=== PATIENT | male | born 1985 | race Two or more races ===

== ENCOUNTER 2020-08-05 19:10 | Emergency (ER) | payer OTHER ==
[~2020-08-05] VITALS: Ht 170.2 cm; Wt 110.2 kg
--- NOTE | 2020-08-05 19:42 | NUR ---
PT STATES HAVING SOB, FEVER, N/V/D X 5 DAYS. PT ALTERNATING TYLENOL AND IBUPROFEN, LAST DOSE AT 1300 TODAY PER PT. PT PLACED ON ALL MONITORS, LABS DRAWN, AWAITING ERP EVAL
[2020-08-05] MEDS ORDERED: ACETAMINOPHEN 500 MG TABLET PO ONE (20:00)
[2020-08-05] MEDS ORDERED: ACETAMINOPHEN 500 MG TABLET ONE (20:03)
--- NOTE | 2020-08-05 20:10 | NUR ---
PT MEDICATED PER EMAR, CXR AT BEDSIDE, NASAL SWABS PENDING
--- NOTE | 2020-08-05 20:43 | NUR ---
PER ERP OK TO HANG ABX WITHOUT BLOOD CULTURES.
[2020-08-05 20:44] LABS: RAPID INFLUENZA A Negative (Negative); RAPID INFLUENZA B Negative (Negative)
[2020-08-05] MEDS ORDERED: SODIUM CHLORIDE FLUSH 10ML SYR IVF ONE (21:00)
[2020-08-05] MEDS ORDERED: SODIUM CHLORIDE 0.9% 1,000ML IVBOLUS ONE (21:00)
[2020-08-05] MEDS ORDERED: AZITHROMYCIN 500 MG in SODIUM CHLORIDE 0.9% 250 ML IV ONE (21:00)
[2020-08-05] MEDS ORDERED: IBUPROFEN 800 MG TABLET ONE (21:05)
--- NOTE | 2020-08-05 21:06 | NUR ---
PT STILL FEBRILE, ERP NOTIFIED, IBUPROFEN ADMINISTERED
[2020-08-05 21:09] LABS: BASOPHILS % (AUTO) 0 % (0-1); EOSINOPHILS % (AUTO) 0 % (1-7); LYMPHOCYTES % (AUTO) 15 % (22-44); MEAN CORPUSCULAR HEMOGLOBIN 28.9 pg (27.5-34.5); MEAN CORPUSCULAR HGB CONC 34.6 g/dL (33.2-36.2); MEAN PLATELET VOLUME 10.3 fL (7.4-10.4); MONOCYTES % (AUTO) 9 % (2-9); NEUTROPHILS % (AUTO) 76 % (42-75); PLATELET COUNT 141 x10^3/uL (130-400); RED CELL DISTRIBUTION WIDTH 13.1 % (9.4-14.8)
[2020-08-05 21:13] LABS: ALBUMIN 4.1 g/dL (3.4-5.0); ANION GAP 8 mmol/L (5-15); CALCIUM 9.2 mg/dL (8.5-10.1); CHLORIDE 103 mmol/L (98-107); CREATININE 1.02 mg/dL (0.7-1.3)
[2020-08-05 21:18] LABS: MD NO
[2020-08-05] MEDS ORDERED: IBUPROFEN 800 MG TABLET PO ONE (21:30)
[2020-08-05 22:09] VITALS: BP 106/66
== END 2020-08-05 22:23 | disposition home or self-care (01) ==
LOC: ED 22:13
DX: U07.1 COVID-19 (principal); J18.9 Pneumonia, unspecified organism; J06.9 Acute upper respiratory infection, unspecified; R00.0 Tachycardia, unspecified
CPT/HCPCS: 71045; 80048; 82040; 85025; 87400; 87635; 93005; 96365; 99285; J0456; J7030; J7050

== ENCOUNTER 2020-08-06 21:27 | Emergency (ER) | payer SELFPAY ==
[~2020-08-06] VITALS: Ht 170.2 cm; Wt 110.2 kg
[2020-08-06] MEDS ORDERED: ACETAMINOPHEN 500 MG TABLET ONE (22:38)
--- NOTE | 2020-08-06 22:40 | NUR ---
TAKE UP SUPERVISOR: PT. TO ROOM FROM LOBBY AT THIS TIME.
[2020-08-06] MEDS ORDERED: ACETAMINOPHEN 500 MG TABLET PO ONE (23:00)
[2020-08-06] MEDS ORDERED: SODIUM CHLORIDE FLUSH 10ML SYR IVF ONE (23:00)
[2020-08-06] MEDS ORDERED: SODIUM CHLORIDE 0.9% 1,000ML IVBOLUS ONE (23:00)
[2020-08-06 23:10] LABS: BASOPHILS % (AUTO) 1 % (0-1); EOSINOPHILS % (AUTO) 0 % (1-7); LYMPHOCYTES % (AUTO) 18 % (22-44); MEAN CORPUSCULAR HEMOGLOBIN 28.7 pg (27.5-34.5); MEAN CORPUSCULAR HGB CONC 34.2 g/dL (33.2-36.2); MEAN PLATELET VOLUME 9.6 fL (7.4-10.4); MONOCYTES % (AUTO) 10 % (2-9); NEUTROPHILS % (AUTO) 71 % (42-75); PLATELET COUNT 137 x10^3/uL (130-400); RED BLOOD COUNT 5.78 x10^6/uL (4.38-5.82); RED CELL DISTRIBUTION WIDTH 13.1 % (9.4-14.8)
[2020-08-06 23:11] LABS: MD NO
--- NOTE | 2020-08-06 23:14 | NUR ---
BLOOD CULTURES X2 COLLECTED.
--- NOTE | 2020-08-06 23:14 | NUR ---
PT RESTING IN [place] AT THIS TIME, NO NEEDS PER PT.
[2020-08-06 23:15] LABS: ALANINE AMINOTRANSFERASE 86 U/L (12-78); ALBUMIN 3.7 g/dL (3.4-5.0); ANION GAP 6 mmol/L (5-15); CALCIUM 8.6 mg/dL (8.5-10.1); CHLORIDE 105 mmol/L (98-107); CREATININE 1.02 mg/dL (0.7-1.3)
[2020-08-06 23:19] LABS: ALKALINE PHOSPHATASE 72 U/L (45-117); BILIRUBIN,TOTAL 0.6 mg/dL (0.2-1.0); TOTAL PROTEIN 7.9 g/dL (6.4-8.2)
--- NOTE | 2020-08-06 23:53 | NUR ---
PT RESTING IN [place], NO NEEDS AT THIS TIME PER PT.
[2020-08-07 00:28] VITALS: BP 106/52
--- NOTE | 2020-08-07 00:29 | NUR ---
PT RESTING IN [facility], NO NEEDS AT THIS TIME.
== END 2020-08-07 00:55 | disposition home or self-care (01) ==
LOC: ED 22:51
DX: F41.1 Generalized anxiety disorder (principal); M79.10 Myalgia, unspecified site; R50.9 Fever, unspecified; R09.81 Nasal congestion; R11.2 Nausea with vomiting, unspecified; R10.9 Unspecified abdominal pain; R06.02 Shortness of breath
CPT/HCPCS: 36415; 71045; 80053; 82728; 83605; 83615; 84145; 85025; 87040; 96360; 99284; J7030

== ENCOUNTER 2020-08-09 14:37 | Inpatient (IN) | payer OTHER ==
[~2020-08-09] VITALS: Ht 170.2 cm; Wt 107.8 kg
[2020-08-09] MEDS ORDERED: DOXYCYCLINE 100 MG in DEXTROSE 5% 250 ML IV SCH (15:30)
[2020-08-09] MEDS ORDERED: ALBUTEROL HFA 90 MCG/SPRAY INH PRN (15:30)
[2020-08-09] MEDS ORDERED: CEFTRIAXONE PMX 1GM/50ML 50 ML IVPB ONE (15:30)
[2020-08-09] MEDS ORDERED: DEXAMETHASONE 4 MG/ML, 1ML IVPush ONE (15:30)
[2020-08-09 15:50] LABS: BASOPHILS % (AUTO) 1 % (0-1); EOSINOPHILS % (AUTO) 0 % (1-7); LYMPHOCYTES % (AUTO) 15 % (22-44); MEAN CORPUSCULAR HEMOGLOBIN 28.4 pg (27.5-34.5); MEAN CORPUSCULAR HGB CONC 34.8 g/dL (33.2-36.2); MEAN PLATELET VOLUME 9.2 fL (7.4-10.4); MONOCYTES % (AUTO) 7 % (2-9); NEUTROPHILS % (AUTO) 78 % (42-75); PLATELET COUNT 178 x10^3/uL (130-400); RED BLOOD COUNT 5.69 x10^6/uL (4.38-5.82); RED CELL DISTRIBUTION WIDTH 12.9 % (9.4-14.8)
[2020-08-09 15:56] LABS: MD NO
[2020-08-09 15:59] LABS: ALANINE AMINOTRANSFERASE 54 U/L (12-78); ALBUMIN 2.9 g/dL (3.4-5.0); ANION GAP 5 mmol/L (5-15); CALCIUM 8.4 mg/dL (8.5-10.1); CHLORIDE 99 mmol/L (98-107); CREATININE 0.81 mg/dL (0.7-1.3)
[2020-08-09 16:05] LABS: D-DIMER (DIC) 0.84 ug/mlFEU (0.00-0.52); PROTIME 10.1 Seconds (9.6-11.5)
[2020-08-09 16:06] LABS: ALKALINE PHOSPHATASE 56 U/L (45-117); BILIRUBIN,TOTAL 0.5 mg/dL (0.2-1.0); C-REACTIVE PROTEIN, QUANT 8.52 mg/dL (0.02-0.49); TOTAL PROTEIN 7.5 g/dL (6.4-8.2)
[2020-08-09] MEDS ORDERED: IBUPROFEN 800 MG TABLET ONE (16:46)
[2020-08-09] MEDS ORDERED: DEXAMETHASONE 4 MG/ML, 1ML ONE (16:46)
[2020-08-09] MEDS ORDERED: CEFTRIAXONE PMX 1GM/50ML 50 ML ONE (16:47)
[2020-08-09] MEDS ORDERED: IBUPROFEN 800 MG TABLET PO ONE (17:00)
[2020-08-09] MEDS ORDERED: PHARMACY MAY ADJ FOR RENAL FX MC PRN (17:30)
[2020-08-09] MEDS ORDERED: POTASSIUM CHLORIDE 10% 40 MEQ/30 ML UDC PO ONE (17:30)
[2020-08-09] MEDS: CEFTRIAXONE PMX 1GM/50ML 50 ML IVPB SCH (17:37)
[2020-08-09] MEDS: ENOXAPARIN 40 MG/0.4 ML SQ SCH (18:00)
[2020-08-09] MEDS ORDERED: REMDESIVIR 200 MG in SODIUM CHLORIDE 0.9% 250 ML IVPB ONE (18:00)
[2020-08-09] MEDS: DOXYCYCLINE 100 MG in DEXTROSE 5% 250 ML IV SCH (18:05)
--- NOTE | 2020-08-09 19:18 | NUR ---
Report received from JEFFERSON Keita. This RN to assume care.
--- NOTE | 2020-08-09 19:29 | NUR ---
Verified with pharmacy; Remdesevir to be initiated within four hours of mixing. Remdesevir at bedside at 1845.
--- NOTE | 2020-08-09 19:30 | NUR ---
Allowing antibiotic to finish then will initiate Remdesivir.
--- NOTE | 2020-08-09 19:40 | NUR ---
Provided dinner tray.
--- NOTE | 2020-08-09 20:00 | NUR ---
Patient sleeping in hospital bed. Respirations even and unlabored.
[2020-08-09] MEDS ORDERED: ENOXAPARIN 40 MG/0.4 ML ONE (21:33)
[2020-08-09] MEDS ORDERED: THIAMINE 100MG TABLET ONE (21:33)
[2020-08-09] MEDS ORDERED: ASCORBIC ACID 500 MG TABLET ONE (21:34)
--- NOTE | 2020-08-09 21:40 | NUR ---
Admin meds per mar. Hospital bed ordered.
[2020-08-09] MEDS: THIAMINE 100MG TABLET PO SCH (21:41)
[2020-08-09] MEDS: ASCORBIC ACID 500 MG TABLET PO SCH (21:41)
--- NOTE | 2020-08-09 22:00 | NUR ---
Patient transferred to hospital bed. No complaints or needs at this time.
--- NOTE | 2020-08-09 23:57 | NUR ---
Patient sleeping in hospital bed. Respirations even and unlabored.
--- NOTE | 2020-08-10 00:11 | NUR ---
Patient sleeping in hospital bed. Respirations even and unlabored. No needs at this time.
--- NOTE | 2020-08-10 01:06 | NUR ---
Patient sleeping in hospital bed. Respirations even and unlabored. No needs at this time.
--- NOTE | 2020-08-10 01:45 | NUR ---
Patient up to BR with RN Rosio assistance.
--- NOTE | 2020-08-10 02:55 | NUR ---
Patient sleeping in hospital bed. Respirations even and unlabored. No needs at this time.
--- NOTE | 2020-08-10 03:20 | NUR ---
Patient sleeping in hospital bed. Respirations even and unlabored. No needs at this time.
--- NOTE | 2020-08-10 04:33 | NUR ---
Patient sleeping in hospital bed. Respirations even and unlabored. No needs at this time.
--- NOTE | 2020-08-10 05:18 | NUR ---
Patient sleeping in hospital bed. Respirations even and unlabored. No needs at this time.
[2020-08-10] MEDS: DOXYCYCLINE 100 MG in DEXTROSE 5% 250 ML IV SCH ×2 (05:30→17:22)
[2020-08-10 06:24] LABS: D-DIMER 0.57 ug/mlFEU (0.00-0.52); INTERNATIONAL NORMALIZED RATIO 0.95 (0.93-1.1); PROTHROMBIN TIME 10.1 Seconds (9.6-11.5)
[2020-08-10 06:27] LABS: CHLORIDE 103 mmol/L (98-107)
[2020-08-10 06:35] LABS: ALANINE AMINOTRANSFERASE 63 U/L (12-78); ALKALINE PHOSPHATASE 56 U/L (45-117); ANION GAP 8 mmol/L (5-15); BILIRUBIN,TOTAL 0.6 mg/dL (0.2-1.0); CALCIUM 9.4 mg/dL (8.5-10.1); CREATININE 0.97 mg/dL (0.7-1.3); TOTAL PROTEIN 7.9 g/dL (6.4-8.2)
--- NOTE | 2020-08-10 06:59 | NUR ---
PT SITTING UPRIGHT ON HOSPITAL BED WITH EYES CLOSED AND LIGHTS OFF. PT DENIES ANY NEEDS AT THIS TIME. RESPIRATIONS REGULAR AND RAPID, 92% ON 6L VIA NASAL CANNULA. PT STATES "I HAVE BEEN HAVING SOME DIARRHEA SO I MIGHT NEED TO GO SOON BUT NOT RIGHT NOW". CALL LIGHT AND PERSONAL BELONGINGS WITHIN REACH. DROPLET PLUS ISOLATION PRECAUTIONS IN PLACE. Addendum: 08/10/20 at 1208 by ROMEO PT SITTING UPRIGHT ON HOSPITAL BED WITH EYES CLOSED AND LIGHTS OFF. PT DENIES ANY NEEDS AT THIS TIME. PER NOC RN NO CHNAGES IN RESPIRATORY STATUS: RESPIRATIONS REGULAR AND RAPID, 92% ON 6L VIA NASAL CANNULA. PT STATES "I HAVE BEEN HAVING SOME DIARRHEA SO I MIGHT NEED TO GO SOON BUT NOT RIGHT NOW". CALL LIGHT AND PERSONAL BELONGINGS WITHIN REACH. DROPLET PLUS ISOLATION PRECAUTIONS IN PLACE.
--- NOTE | 2020-08-10 06:59 | NUR ---
BEDSIDE REPORT RECEIVED FROM MICHA PAULINO.
[2020-08-10] MEDS ORDERED: POTASSIUM CHLORIDE 20 MEQ TAB.ER.PRT PO ONE (07:30)
[2020-08-10] MEDS ORDERED: THIAMINE 100MG TABLET ONE (07:48)
[2020-08-10] MEDS ORDERED: CHOLECALCIFEROL 5,000u TAB ONE (07:48)
[2020-08-10] MEDS ORDERED: POTASSIUM CHLORIDE 20 MEQ TAB.ER.PRT ONE (07:49)
[2020-08-10] MEDS ORDERED: ASCORBIC ACID 500 MG TABLET ONE (07:49)
[2020-08-10] MEDS ORDERED: ZINC SULFATE 220 MG CAPSULE ONE (07:49)
[2020-08-10] MEDS: ASCORBIC ACID 500 MG TABLET PO SCH ×2 (08:08→19:53)
[2020-08-10] MEDS: ZINC SULFATE 220 MG CAPSULE PO SCH (08:08)
[2020-08-10] MEDS: THIAMINE 100MG TABLET PO SCH ×2 (08:09→19:53)
[2020-08-10] MEDS: CHOLECALCIFEROL (VITAMIN D3) 5000 IU CAP PO SCH (08:09)
--- NOTE | 2020-08-10 08:15 | NUR ---
PT UP TO BEDSIDE COMMODE WITH THIS RN. PT C/O INCREASED SOB BREATH WHEN STANDING, MD AWARE. PT PROVIDED BREAKFAST TRAY AT THIS TIME. PT DENIES ANY ADDITIONAL NEEDS AT THIS TIME. CALL LIGHT AND PERSONAL BELONGINGS WITHIN REACH. CONTINUOUS PULSE OX AND CARDIAC MONITORING IN PLACE.
--- NOTE | 2020-08-10 09:03 | NUR ---
BREAK RN: PT LAYING ON HOSPITAL BED AWAKE & COMFORTABLE, NAD, NO NEEDS AT THIS TIME, CALL LIGHT WITHIN REACH.
--- NOTE | 2020-08-10 10:06 | NUR ---
PT LAYING ON HOSPITAL BED AWAKE & COMFORTABLE, NAD. PT CONSUMED ENTIRE BREAKFAST TRAY. NO NEEDS AT THIS TIME, CALL LIGHT AND PERSONAL BELONINGS WITHIN REACH.
--- NOTE | 2020-08-10 11:04 | NUR ---
PT LAYING ON HOSPITAL BED AWAKE & COMFORTABLE, NAD. PT PROVIDED URINAL PER REQUEST. PT DENIES ANY ADDITIONAL NEEDS AT THIS TIME, CALL LIGHT AND PERSONAL BELONINGS WITHIN REACH.
--- NOTE | 2020-08-10 12:15 | NUR ---
CALL PLACED TO HOSPITALIST REGARDING PT SLOW O2 DESAT 90-92% FROM SIGNAL REPAIRER REPORT OF INCREASE OF SUPP O2. NO CHANGE IN RESPIRATORY STATUS SINCE ASSUMING CARE. HOSPITALIST REQUESTS RT EVAL FOR HIGH FLOW NASAL CANNULA. CALL PLACED TO RT, RT AT BEDSIDE FOR PT EVAL. PT SITTING UPRIGHT ON [facility] NAD.
--- NOTE | 2020-08-10 12:25 | NUR ---
PT ASSESSED BY RT AND PLACED ON A HIGH FLOW NASAL CANNULA AT 9L. PT TOLERATING WELL.
--- NOTE | 2020-08-10 13:02 | NUR ---
PT UPRIGHT ON HOSPITAL BED AWAKE & COMFORTABLE, NAD. PT PROVIDED LUNCH TRAY. PT DENIES ANY ADDITIONAL NEEDS AT THIS TIME, CALL LIGHT AND PERSONAL BELONINGS WITHIN REACH.
--- NOTE | 2020-08-10 14:02 | NUR ---
PT UPRIGHT ON HOSPITAL BED AWAKE & COMFORTABLE, NAD. PT DENIES ANY ADDITIONAL NEEDS AT THIS TIME, CALL LIGHT AND PERSONAL BELONINGS WITHIN REACH.
--- NOTE | 2020-08-10 15:00 | NUR ---
PT UPRIGHT ON HOSPITAL BED AWAKE & COMFORTABLE, NAD. PT DENIES ANY ADDITIONAL NEEDS AT THIS TIME, CALL LIGHT AND PERSONAL BELONINGS WITHIN REACH.
--- NOTE | 2020-08-10 15:03 | NUR ---
REPORT CALLED TO TEGAN PAULINO
[2020-08-10 15:46] VITALS: BP 116/80
[2020-08-10] MEDS: ACETAMINOPHEN 325 MG TABLET PO PRN (15:57)
[2020-08-10] MEDS: CEFTRIAXONE PMX 1GM/50ML 50 ML IVPB SCH (18:26)
[2020-08-10] MEDS: ENOXAPARIN 40 MG/0.4 ML SQ SCH (18:26)
[2020-08-10 19:51] VITALS: BP 111/79
[2020-08-10] MEDS: REMDESIVIR 100 MG in SODIUM CHLORIDE 0.9% 250 ML IVPB SCH (19:52)
[2020-08-10 20:15] VITALS: BP 107/72
[2020-08-10 21:57] VITALS: BP 99/64
[2020-08-10] MEDS ORDERED: TEMAZEPAM 15 MG CAPSULE PO PRN (23:30)
[2020-08-10 23:41] VITALS: BP 94/63
[2020-08-11 00:53] VITALS: BP 98/66
[2020-08-11] MEDS: ACETAMINOPHEN 325 MG TABLET PO PRN (01:10)
[2020-08-11] MEDS: DOXYCYCLINE 100 MG in DEXTROSE 5% 250 ML IV SCH ×2 (05:13→17:26)
[2020-08-11 06:10] LABS: BASOPHILS % (AUTO) 0 % (0-1); EOSINOPHILS % (AUTO) 0 % (1-7); LYMPHOCYTES % (AUTO) 15 % (22-44); MEAN CORPUSCULAR HEMOGLOBIN 28.7 pg (27.5-34.5); MEAN CORPUSCULAR HGB CONC 34.2 g/dL (33.2-36.2); MEAN PLATELET VOLUME 9.2 fL (7.4-10.4); MONOCYTES % (AUTO) 4 % (2-9); NEUTROPHILS % (AUTO) 80 % (42-75); PLATELET COUNT 217 x10^3/uL (130-400); RED BLOOD COUNT 5.21 x10^6/uL (4.38-5.82); RED CELL DISTRIBUTION WIDTH 13.2 % (9.4-14.8)
[2020-08-11 06:20] LABS: CHLORIDE 100 mmol/L (98-107)
[2020-08-11 06:22] LABS: MD NO
[2020-08-11 06:26] LABS: ALANINE AMINOTRANSFERASE 70 U/L (12-78); ALBUMIN 2.7 g/dL (3.4-5.0); ALKALINE PHOSPHATASE 49 U/L (45-117); ANION GAP 8 mmol/L (5-15); BILIRUBIN,TOTAL 0.6 mg/dL (0.2-1.0); CALCIUM 8.5 mg/dL (8.5-10.1); TOTAL PROTEIN 6.8 g/dL (6.4-8.2)
[2020-08-11] MEDS: INSULIN LISPRO 100 UNITS/ML, PEN SQ-INSULIN SCH ×4 (07:00→20:57)
[2020-08-11] MEDS ORDERED: POTASSIUM CHLORIDE 20 MEQ TAB.ER.PRT PO ONE (07:00)
[2020-08-11 08:05] VITALS: BP 124/68
[2020-08-11] MEDS: ASCORBIC ACID 500 MG TABLET PO SCH ×2 (08:11→20:51)
[2020-08-11] MEDS: ZINC SULFATE 220 MG CAPSULE PO SCH (08:11)
[2020-08-11] MEDS: CHOLECALCIFEROL (VITAMIN D3) 5000 IU CAP PO SCH (08:12)
[2020-08-11] MEDS: THIAMINE 100MG TABLET PO SCH ×2 (08:12→20:51)
[2020-08-11 12:19] VITALS: BP 128/70
[2020-08-11 17:02] LABS: RAPID INFLUENZA A Negative (Negative); RAPID INFLUENZA B Negative (Negative)
[2020-08-11] MEDS: ENOXAPARIN 40 MG/0.4 ML SQ SCH (17:26)
[2020-08-11] MEDS: CEFTRIAXONE PMX 1GM/50ML 50 ML IVPB SCH (17:26)
[2020-08-11 20:26] VITALS: BP 117/78
[2020-08-11] MEDS: REMDESIVIR 100 MG in SODIUM CHLORIDE 0.9% 250 ML IVPB SCH (21:30)
[2020-08-11] MEDS: MELATONIN 5 MG TABLET PO SCH (21:30)
[2020-08-11] MEDS: TEMAZEPAM 30 MG CAPSULE PO SCH (21:30)
[2020-08-11 21:54] VITALS: BP 120/77
[2020-08-12 00:52] VITALS: BP 123/77
[2020-08-12] MEDS: ACETAMINOPHEN 325 MG TABLET PO PRN (01:09)
[2020-08-12] MEDS: DOXYCYCLINE 100 MG in DEXTROSE 5% 250 ML IV SCH ×2 (05:01→19:21)
[2020-08-12 06:27] LABS: INTERNATIONAL NORMALIZED RATIO 1.06 (0.93-1.1); PROTHROMBIN TIME 11.2 Seconds (9.6-11.5)
[2020-08-12] MEDS: INSULIN LISPRO 100 UNITS/ML, PEN SQ-INSULIN SCH ×4 (07:00→20:03)
[2020-08-12] MEDS: ASCORBIC ACID 500 MG TABLET PO SCH ×2 (07:34→21:24)
[2020-08-12] MEDS: ZINC SULFATE 220 MG CAPSULE PO SCH (07:34)
[2020-08-12] MEDS: THIAMINE 100MG TABLET PO SCH ×2 (07:34→21:24)
[2020-08-12] MEDS: CHOLECALCIFEROL (VITAMIN D3) 5000 IU CAP PO SCH (07:37)
[2020-08-12 07:54] VITALS: BP 111/79
[2020-08-12 10:41] LABS: ALANINE AMINOTRANSFERASE 57 U/L (12-78); ANION GAP 7 mmol/L (5-15); BILIRUBIN,TOTAL 0.7 mg/dL (0.2-1.0); CALCIUM 8.8 mg/dL (8.5-10.1); CHLORIDE 100 mmol/L (98-107); CREATININE 0.88 mg/dL (0.7-1.3)
[2020-08-12 10:42] LABS: ALBUMIN 2.5 g/dL (3.4-5.0); ALKALINE PHOSPHATASE 51 U/L (45-117); TOTAL PROTEIN 6.7 g/dL (6.4-8.2)
[2020-08-12 12:34] VITALS: BP 126/83
[2020-08-12] MEDS: CEFTRIAXONE PMX 1GM/50ML 50 ML IVPB SCH (16:58)
[2020-08-12] MEDS: ENOXAPARIN 40 MG/0.4 ML SQ SCH (16:58)
[2020-08-12 19:56] VITALS: BP 118/77
[2020-08-12] MEDS: MELATONIN 5 MG TABLET PO SCH (21:24)
[2020-08-12] MEDS: TEMAZEPAM 30 MG CAPSULE PO SCH (21:24)
[2020-08-12] MEDS: REMDESIVIR 100 MG in SODIUM CHLORIDE 0.9% 250 ML IVPB SCH (22:06)
[2020-08-13 00:32] VITALS: BP 124/76
[2020-08-13] MEDS: ACETAMINOPHEN 325 MG TABLET PO PRN (02:27)
[2020-08-13 05:52] LABS: ANION GAP 5 mmol/L (5-15); CALCIUM 8.4 mg/dL (8.5-10.1); CHLORIDE 99 mmol/L (98-107); CREATININE 0.86 mg/dL (0.7-1.3)
[2020-08-13 06:13] LABS: ALANINE AMINOTRANSFERASE 46 U/L (12-78); ALBUMIN 2.3 g/dL (3.4-5.0); ALKALINE PHOSPHATASE 53 U/L (45-117); BILIRUBIN,TOTAL 0.7 mg/dL (0.2-1.0); TOTAL PROTEIN 6.5 g/dL (6.4-8.2)
[2020-08-13] MEDS ORDERED: POTASSIUM CHLORIDE 20 MEQ TAB.ER.PRT PO ONE (06:30)
[2020-08-13] MEDS ORDERED: POTASSIUM CHLORIDE 20 MEQ TAB.ER.PRT ONE (06:35)
[2020-08-13] MEDS: DOXYCYCLINE 100 MG in DEXTROSE 5% 250 ML IV SCH ×2 (07:54→20:09)
[2020-08-13] MEDS: INSULIN LISPRO 100 UNITS/ML, PEN SQ-INSULIN SCH ×4 (07:55→20:20)
[2020-08-13 07:58] VITALS: BP 117/75
[2020-08-13] MEDS: CHOLECALCIFEROL (VITAMIN D3) 5000 IU CAP PO SCH (09:00)
[2020-08-13] MEDS: ASCORBIC ACID 500 MG TABLET PO SCH ×2 (09:09→20:09)
[2020-08-13] MEDS: ZINC SULFATE 220 MG CAPSULE PO SCH (09:09)
[2020-08-13] MEDS: THIAMINE 100MG TABLET PO SCH ×2 (09:09→20:09)
[2020-08-13 15:18] VITALS: BP 111/72
[2020-08-13] MEDS: CEFTRIAXONE PMX 1GM/50ML 50 ML IVPB SCH (17:25)
[2020-08-13] MEDS: ENOXAPARIN 40 MG/0.4 ML SQ SCH (17:25)
[2020-08-13 18:59] VITALS: BP 133/73
[2020-08-13] MEDS: TEMAZEPAM 30 MG CAPSULE PO SCH (20:09)
[2020-08-13] MEDS: MELATONIN 5 MG TABLET PO SCH (20:09)
[2020-08-13] MEDS: REMDESIVIR 100 MG in SODIUM CHLORIDE 0.9% 250 ML IVPB SCH (22:07)
[2020-08-14 00:53] VITALS: BP 116/73
[2020-08-14] MEDS: ACETAMINOPHEN 325 MG TABLET PO PRN (02:23)
[2020-08-14] MEDS: INSULIN LISPRO 100 UNITS/ML, PEN SQ-INSULIN SCH (07:00)
[2020-08-14] MEDS ORDERED: SODIUM CHLORIDE NASAL SPRAY 45ML BOTTLE NAS PRN (08:30)
[2020-08-14 08:35] VITALS: BP 119/78
[2020-08-14] MEDS: CHOLECALCIFEROL (VITAMIN D3) 5000 IU CAP PO SCH (09:00)
[2020-08-14] MEDS ORDERED: CHOLECALCIFEROL 1,000 UNIT TABLET ONE (09:00)
[2020-08-14] MEDS: FLUTICASONE NASAL SPRAY 16GM NAS SCH (09:05)
[2020-08-14] MEDS: DOXYCYCLINE 100 MG in DEXTROSE 5% 250 ML IV SCH ×2 (09:05→21:00)
[2020-08-14] MEDS: ASCORBIC ACID 500 MG TABLET PO SCH ×2 (09:06→21:00)
[2020-08-14] MEDS: THIAMINE 100MG TABLET PO SCH ×2 (09:06→21:00)
[2020-08-14] MEDS: ZINC SULFATE 220 MG CAPSULE PO SCH (09:06)
[2020-08-14] MEDS: LORATADINE 10 MG TABLET PO SCH (09:06)
[2020-08-14 13:59] VITALS: BP 119/84
[2020-08-14] MEDS: CEFTRIAXONE PMX 1GM/50ML 50 ML IVPB SCH (17:48)
[2020-08-14] MEDS: ENOXAPARIN 40 MG/0.4 ML SQ SCH (17:51)
[2020-08-14 19:04] VITALS: BP 138/84
[2020-08-14] MEDS: TEMAZEPAM 30 MG CAPSULE PO SCH (21:00)
[2020-08-14] MEDS: MELATONIN 5 MG TABLET PO SCH (21:00)
[2020-08-14 21:10] VITALS: BP 105/71
[2020-08-15 02:39] VITALS: BP 101/68
[2020-08-15 06:31] LABS: BASOPHILS % (AUTO) 1 % (0-1); EOSINOPHILS % (AUTO) 2 % (1-7); LYMPHOCYTES % (AUTO) 15 % (22-44); MEAN CORPUSCULAR HGB CONC 34.6 g/dL (33.2-36.2); MEAN PLATELET VOLUME 8.8 fL (7.4-10.4); MONOCYTES % (AUTO) 13 % (2-9); NEUTROPHILS % (AUTO) 69 % (42-75); PLATELET COUNT 404 x10^3/uL (130-400); RED BLOOD COUNT 4.68 x10^6/uL (4.38-5.82); RED CELL DISTRIBUTION WIDTH 12.9 % (9.4-14.8)
[2020-08-15 06:32] LABS: MD NO
[2020-08-15 06:44] LABS: CHLORIDE 103 mmol/L (98-107)
[2020-08-15 06:55] LABS: ANION GAP 6 mmol/L (5-15); CALCIUM 8.9 mg/dL (8.5-10.1); CREATININE 0.65 mg/dL (0.7-1.3)
[2020-08-15 08:36] VITALS: BP 114/73
[2020-08-15] MEDS: CHOLECALCIFEROL (VITAMIN D3) 5000 IU CAP PO SCH (09:00)
[2020-08-15] MEDS ORDERED: CHOLECALCIFEROL 1,000 UNIT TABLET ONE (10:35)
[2020-08-15] MEDS: THIAMINE 100MG TABLET PO SCH ×2 (10:43→20:37)
[2020-08-15] MEDS: ASCORBIC ACID 500 MG TABLET PO SCH ×2 (10:43→20:37)
[2020-08-15] MEDS: DOXYCYCLINE 100 MG in DEXTROSE 5% 250 ML IV SCH (10:43)
[2020-08-15] MEDS: FLUTICASONE NASAL SPRAY 16GM NAS SCH (10:43)
[2020-08-15] MEDS: ZINC SULFATE 220 MG CAPSULE PO SCH (10:43)
[2020-08-15] MEDS: LORATADINE 10 MG TABLET PO SCH (10:44)
[2020-08-15 14:19] VITALS: BP 123/82
[2020-08-15] MEDS ORDERED: CHOLECALCIFEROL (VITAMIN D3) 5000 IU CAP PO SCH (15:30)
[2020-08-15] MEDS ORDERED: CHOLECALCIFEROL 5,000u TAB ONE ×2 (16:12→17:31)
[2020-08-15] MEDS: CEFTRIAXONE PMX 1GM/50ML 50 ML IVPB SCH (17:34)
[2020-08-15] MEDS: ENOXAPARIN 40 MG/0.4 ML SQ SCH (17:35)
[2020-08-15 19:58] VITALS: BP 120/80
[2020-08-15] MEDS: MELATONIN 5 MG TABLET PO SCH (20:37)
[2020-08-15] MEDS: DOXYCYCLINE 100MG TABLET PO SCH (20:37)
[2020-08-15] MEDS: TEMAZEPAM 30 MG CAPSULE PO SCH (20:37)
[2020-08-16 00:59] VITALS: BP 108/74
[2020-08-16 06:49] VITALS: BP 117/78
[2020-08-16] MEDS ORDERED: DOXY100T PO (08:26)
[2020-08-16] MEDS ORDERED: ALBU18HF INH (08:26)
[2020-08-16] MEDS ORDERED: CEFD300C37 PO (08:26)
[2020-08-16] MEDS ORDERED: FLUT16SP24 NAS (08:26)
[2020-08-16] MEDS ORDERED: DEXA6TAB6 PO (08:26)
[2020-08-16] MEDS: FLUTICASONE NASAL SPRAY 16GM NAS SCH (08:55)
[2020-08-16] MEDS: LORATADINE 10 MG TABLET PO SCH (08:55)
[2020-08-16] MEDS: DOXYCYCLINE 100MG TABLET PO SCH (08:55)
[2020-08-16] MEDS: THIAMINE 100MG TABLET PO SCH (08:55)
[2020-08-16] MEDS: ZINC SULFATE 220 MG CAPSULE PO SCH (08:55)
[2020-08-16] MEDS: ASCORBIC ACID 500 MG TABLET PO SCH (08:55)
[2020-08-16] MEDS ORDERED: CHOLECALCIFEROL 5,000u TAB PO SCH (09:00)
[2020-08-16 12:08] VITALS: BP 106/69
== END 2020-08-16 14:59 | disposition home or self-care (01) | DRG 871 ==
LOC: ED 15:32 → EDIP 16:27 → 3N 08-10 16:00
PROVIDERS: ADMIT Internal Medicine; ATTEND Hospitalist
DX: A41.89 Other specified sepsis (principal); J12.89 Other viral pneumonia; J96.01 Acute respiratory failure with hypoxia; U07.1 COVID-19; E87.1 Hypo-osmolality and hyponatremia; E87.6 Hypokalemia; J31.0 Chronic rhinitis; Z79.899 Other long term (current) drug therapy; Z79.891 Long term (current) use of opiate analgesic; Z79.2 Long term (current) use of antibiotics; Z79.01 Long term (current) use of anticoagulants; E11.9 Type 2 diabetes mellitus without complications
CPT/HCPCS: 36415; 71045; 80048; 80053; 82728; 82962; 83605; 83615; 83735; 84145; 85025; 85049; 85379; 85384; 85610; 85730; 86140; 87040; 87400; 93005; 99291; G0378; J0696; J1100; J1650; J7060; J7050